=== PATIENT | male | born 1995 | race Caucasian/White ===

== ENCOUNTER 2021-09-14 17:15 | Emergency (ER) | payer OTHER ==
[~2021-09-14] VITALS: Ht 172.7 cm; Wt 78.0 kg
[2021-09-14 17:31] VITALS: BP 142/88
== END 2021-09-14 20:17 | disposition home or self-care (01) ==
LOC: ER 17:28
DX: M79.642 Pain in left hand (principal)
CPT/HCPCS: 73130; 99283